=== PATIENT | female | born 1950 | race Caucasian/White ===

== ENCOUNTER → 2017-07-02 | Outpatient (CLI) | payer OTHER ==
--- NOTE | 2017-07-02 11:17 | DIAGNOSTIC IMAGING REPORT ---
ABDOMEN LIMITED (US) CLINICAL HISTORY: Q64.4 Urachal cyst Please evaluate for urachal cyst or remnant ULT COMPARISON STUDY: None. FINDINGS: Real-time sonographic imaging of the bladder was performed. No bladder wall thickening. The bilateral ureteral jets were identified. No evidence for a ureteral cyst/remnant. No fluid collections at the level of the umbilicus. IMPRESSION: No sonographic evidence for a urachal cyst/remnant. Electronically signed by: Brice Phillips M.D. 07/02/2017 11:15 AM Dictated Date/Time: 07/02/2017 11:14 AM
== END | disposition home or self-care (01) ==
LOC: C.ULTR 10:36
PROVIDERS: ATTEND Urology
DX: Q64.4 Malformation of urachus (principal)